=== PATIENT | female | born 2000 | race African-American/Black ===

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

== ENCOUNTER 2021-03-23 08:25 | Day surgery (SDC) | payer BC, OTHER ==
[~2021-03-23] VITALS: Ht 182.9 cm; Wt 64.9 kg
[~2021-03-23 08:25] MED LIST: LO LOESTRIN TAB 1-1
[2021-03-23 09:05] LABS: HEMATOCRIT 38.6 % (36.0-48.0); HEMOGLOBIN 12.4 g/dL (12-16); MCH 25.7 pg (26.0-34.0); MCHC 32.2 g/dL (31.0-37.0); MCV 79.8 fL (80.0-100.0); RBC 4.84 10x6/uL (4.00-5.40); RDW 14.2 % (11.5-14.5); WBC 8.7 10x3/uL (4.8-10.8)
[2021-03-23 09:12] LABS: HCG SERUM NEGATIVE (NEGATIVE)
[2021-03-23 10:23] VITALS: BP 110/76; Ht 182.9 cm; Wt 64.9 kg
--- NOTE | 2021-03-23 16:20 | NUR ---
DISCHARGED VIA W/C, ACCOMPANIED BY KERRY TOMPKINS, TO [facility] WITH [facility] DRIVING. ALL BELONGINGS WITH PT/FAMILY.
--- NOTE | 2021-03-24 08:17 | OP ---
PATIENT NAME: SORAIDA HANEY MEDICAL RECORD: [id number] :01 LOCATION:[facility] ADMISSION DATE: SURGEON: BISHOP RICHARDSON DO DATE OF OPERATION: 03/23/2021 PROCEDURE PERFORMED: Left knee arthroscopy with plica resection and lateral release. 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 INDICATIONS: Ms. Haney is a 20-year-old female who has had left knee pain for quite some time. She has had issues with her knee. MRI was done showing a lateral tilt of the patella and a TT-TG of 1.8, I believe just outside of normal, but not abnormal enough to do tibial tubercle osteotomy. She was tired of dealing with the pain and wanted something done surgically. She is aware of the risks of this including infection, bleeding, damage to nerve or vessels, need for further surgery, loss of motion of the knee, continued pain, patellar dislocation, blood clots and even , and she signed the consent. SURGEON: Bishop Richardson DO DESCRIPTION OF PROCEDURE: The patient was taken to the operative suite, laid in supine position, given general anesthetic and LMA was placed. She was given 2 grams of Ancef preoperatively. The left lower extremity was then prepped and draped in sterile fashion. Timeout was performed. Everyone was in agreement with the correct site, side, patient, and procedure. I then began by making a lateral portal with an 11-blade scalpel. Trocar was then brought into the joint. I then inspected the suprapatellar pouch and saw the plica over the medial aspect and no loose body seen at the medial or lateral gutters. I then established the medial portal with an 18-gauge spinal needle and 11-blade scalpel and brought a probe in, probed the meniscus on the medial side. There were no tears seen. That ACL was in good repair and the lateral meniscus after figure-four'ing the knee was also in good repair. I thought that the patella was slightly riding laterally. I then brought in a shaver first and resected the plica over the medial aspect and then switched portal viewing portals to the medial portal and then brought in a burner and performed a lateral release. After the lateral release was done, the patella was indeed riding center in the trochlear groove and in good position. I then coagulated any bleeding. I then removed the instruments and turned off the water and turned on the suction, removed any extra fluid and then closed the portal sites with 4-0 Monocryl in inverted interrupted fashion and injected with 0.25% Marcaine with epinephrine, approximately 5 mL in each site and then she was dressed with Steri-Strips, Adaptic, 4 x 4's, ABD, [place], Hamlet wrap and awakened and taken to recovery in stable condition. BLOOD LOSS: Minimal. COMPLICATIONS: None. TRANSINT:[id number] Voice Confirmation ID: [id number] DOCUMENT ID: [id number] OPERATIVE REPORT [id number] SORAIDA HANEY,BISHOP Palmer DO at 0817 CC: [id number] DICTATION DATE: 03/23/21 1849 IRRIGATION INSTALLATION SPECIALIST: [id number] [facility] 03/23/21 [facility] [address] [place] [address]
== END 2021-03-23 16:20 | disposition home or self-care (01) ==
LOC: D.OPS 08:25
PROVIDERS: Anesthesiology; ATTEND Orthopaedic Surgery
DX: M67.52 Plica syndrome, left knee (principal); M22.2X2 Patellofemoral disorders, left knee; M25.562 Pain in left knee